=== PATIENT | male | born 1995 | race Caucasian/White ===

== ENCOUNTER 2016-09-02 00:20 | Emergency (ER) | payer OTHER ==
[2016-09-02 01:46] LABS: HEMOGLOBIN 16.3 gm/dl (14.0-17.5); RED BLOOD COUNT 5.31 M/UL (4.20-5.50); WHITE BLOOD COUNT 7.3 K/UL (4.5-11.0)
[2016-09-02 02:05] LABS: BUN/CREATININE RATIO 14 (0-10)
== END 2016-09-02 03:11 | disposition home or self-care (01) ==
LOC: ER1 00:20
PROVIDERS: Physician Assistant
DX: T65.891A Toxic effect of other specified substances, accidental (unintentional), initial encounter (principal); T24.6 Corrosion of second degree of lower limb, except ankle and foot
CPT/HCPCS: 36415; 80053; 82550; 83874; 85025; 90471; 90715; 99283; J7030

== ENCOUNTER 2020-03-28 16:37 | Emergency (ER) | payer OTHER ==
[~2020-03-28 16:37] MED LIST: LIBRIUM CAP 2525 MG PO
== END 2020-03-28 20:08 | disposition left against medical advice (07) ==
LOC: ER1 16:37
DX: R06.02 Shortness of breath (principal); R51.9 Headache, unspecified; R05 Cough; Z53.21 Procedure and treatment not carried out due to patient leaving prior to being seen by health care provider

== ENCOUNTER 2020-12-31 11:19 | Emergency (ER) | payer OTHER ==
[2020-12-31 11:58] LABS: HEMOGLOBIN 16.2 gm/dl (14.0-17.5); RED BLOOD COUNT 5.2 M/UL (4.20-5.50); WHITE BLOOD COUNT 4.4 K/UL (4.5-11.0)
[2020-12-31 12:27] LABS: BUN/CREATININE RATIO 12 (0-10)
[2020-12-31] MEDS ORDERED: ZOFRAN4 MG PO (14:04)
[2021-01-01 10:14] LABS: HBSAG SCREEN Negative (Negative); HEP A AB, IGM Negative (Negative); HEP B CORE AB, IGM Negative (Negative); HEP C VIRUS AB 0.2 (0.0-0.9)
== END 2020-12-31 14:20 | disposition home or self-care (01) ==
LOC: ER1 11:19
PROVIDERS: Nurse Practitioner
DX: R10.11 Right upper quadrant pain (principal)
CPT/HCPCS: 80053; 80074; 81001; 83690; 85025; 99284; Q9967

== ENCOUNTER → 2021-02-27 | Emergency (ER) | payer OTHER ==
[~2021-02-27] MED LIST changes: +LODINE CAP 300300 MG PO; +PENVEE K 500 M500 MG PO; +ZOFRAN4 MG PO
== END | disposition home or self-care (01) ==
LOC: ER1 03:58
DX: K02.9 Dental caries, unspecified (principal); F17.290 Nicotine dependence, other tobacco product, uncomplicated
CPT/HCPCS: 99282; J1885

== ENCOUNTER 2021-07-15 12:23 | Emergency (ER) | payer OTHER | END 2021-07-15 16:40 | disposition home or self-care (01) | LOC: ER1 12:23 | DX: N62 Hypertrophy of breast (principal) | CPT/HCPCS: 71046; 76641-LT; 99283 ==